=== PATIENT | female | born 1940 | race Caucasian/White ===

== ENCOUNTER 2017-11-19 19:39 | Inpatient (IN) | payer MEDICARE, BC ==
[2017-11-19] MEDS ORDERED: Ondansetron INJ* 2 MG/ML VIAL IV ONE (19:54)
[2017-11-19] MEDS ORDERED: fentaNYL* 50 MCG/ML 2 ML VIAL (100 MCG VIAL) IV SLOW PU ONE ×2 (19:54→22:05)
[2017-11-19 20:23] LABS: ABS Basophils 0.1 10^3/ul (0-0.2); ABS Eosinophils 0.2 10^3/ul (0-0.6); ABS Lymphocytes 1.3 10^3/ul (1.0-4.8); ABS Monocytes 0.4 10^3/ul (0-0.8); ABS Neutrophils 6.1 10^3/ul (1.5-7.7); ABS Nucleated RBC 0 10^3/ul; Eosinophil % 1.9 % (0-6); Hematocrit 36 % (35-47); Hemoglobin 12.7 g/dl (12.0-16.0); Lymphocyte % 16.1 % (25-47); Mean Corpuscular HGB Conc 36 g/dl (31-36); Mean Corpuscular Hemoglobin 31 pg (27-31); Mean Corpuscular Volume 88 fL (80-97); Mean Platelet Volume 8.1 um3 (7.4-10.4); Nucleated Red Blood Cells % 0; Platelet Count 201 10^3/ul (150-450); Red Blood Count 4.06 10^6/ul (4.00-5.40); Red Cell Distribution Width 13 % (10.5-15); White Blood Count 8.1 10^3/ul (3.5-10.8)
[2017-11-19 20:33] LABS: EGFR Non-African American 52.5 (>60)
[2017-11-19 20:34] LABS: INR 0.88 (0.77-1.02)
--- NOTE | 2017-11-19 21:01 | RAD ---
INDICATION: Left hip injury. COMPARISON: There are no prior studies available for comparison. TECHNIQUE: An AP view of the pelvis and frontal and lateral views of the left hip were obtained. FINDINGS: There is an intertrochanteric fracture of the left femur. The fracture fragments appear grossly nondisplaced. No other fractures are seen. There is mild to moderate bilateral osteoarthritic change in the hips. IMPRESSION: INTERTROCHANTERIC FRACTURE OF THE LEFT FEMUR.
--- NOTE | 2017-11-19 21:03 | RAD ---
INDICATION: Left hip fracture, preoperative study. COMPARISON: There are no prior studies available for comparison. TECHNIQUE: A portable view of the chest was obtained. FINDINGS: Cardiac and mediastinal contours appear to be within normal limits. The lungs are underinflated and clear. No pleural effusion is seen. IMPRESSION: NO EVIDENCE FOR ACUTE DISEASE.
--- NOTE | 2017-11-19 21:17 | ED ---
Josh Garnica Tariq, scribed for Joey Suazo MD on 11/19/17 at 2003 . Lower Extremity - HPI Summary HPI Summary: A 77 y/o female MATILDE presents to ED c/o left hip pain. According to the patient , she was at a gathering with she decided to head out to the parking lot. In the parking lot, she tripped on the black asphalt, falling on her left hip. She was not able to stand up because of the pain, 7/10 in severity. The patient noted that she cannot move it compared to before. As per triage, patient denies hitting head. - History of Current Complaint Chief Complaint: EDHipPelvisInjury Stated Complaint: FALL/HIP PAIN Time Seen by Provider: 11/19/17 19:47 Hx Obtained From: Patient Mechanism Of Injury: Fall From A Standing Position - Tripped in parking lot on black asphalt. Onset of Pain: Immediate Onset/Duration: Still Present Severity Initially: Severe Severity Currently: Severe Pain Intensity: 7 Pain Scale Used: 0-10 Numeric Timing: Constant Location: Is Discrete @ - Left hip. Aggravating Factor(s): Movement, Weight Bearing Alleviating Factor(s): Rest, Nothing - POSITION Able to Bear Weight: No - Allergies/Home Medications Allergies/Adverse Reactions: Allergies Allergy/AdvReac Type Severity Reaction Status Date / Time Unable to Assess Allergy Verified 11/19/17 20:20 PMH/Surg Hx/FS Hx/Imm Hx Endocrine/Hematology History: Denies: Hx Diabetes Cardiovascular History: Denies: Hx Hypertension - Cancer History Cancer Type, Location and Year: Breast cancer Infectious Disease History: No Infectious Disease History: Denies: Traveled Outside the [place] in Last 30 Days - Family History Known Family History: Positive: Diabetes, Other - Heart issues. - Social History Lives: With Family Alcohol Use: Daily - 4oz of wine with dinner, 5-6 times a week. Hx Tobacco Use: No Smoking Status (MU): Never Smoked Tobacco Review of Systems Negative: Fever Positive: Other - POSITIVE: left hip pain Neurological: Negative All Other Systems Reviewed And Are Negative: Yes Physical Exam - Summary Physical Exam Summary: VITAL SIGNS: Reviewed. GENERAL: Patient is a well-developed and nourished FEMALE who is in semi-flex position using pillow. Patient is not in any acute respiratory distress. HEAD AND FACE: No signs of trauma. No ecchymosis, hematomas or skull depressions. No sinus tenderness. EYES: PERRLA, EOMI x 2, No injected conjunctiva, no nystagmus. EARS: Hearing grossly intact. Ear canals and tympanic membranes are within normal limits. MOUTH: Oropharynx within normal limits. NECK: Supple, trachea is midline, no adenopathy, no JVD, no carotid bruit, no c- spine tenderness, neck with full ROM. CHEST: Symmetric, no tenderness at palpation LUNGS: Clear to auscultation bilaterally. No wheezing or crackles. CVS: Regular rate and rhythm, S1 and S2 present, no murmurs or gallops appreciated. ABDOMEN: Soft, non-tender. No signs of distention. No rebound no guarding, and no masses palpated. Bowel sounds are normal. EXTREMITIES: Left hip tenderness. Unable to move because of pain. No edema, no cyanosis or clubbing. NEURO: Alert and oriented x 3. No acute neurological deficits. Speech is normal and follows commands. Neuro exam is in tact. SKIN: Dry and warm Triage Information Reviewed: Yes Vital Signs On Initial Exam: Initial Vitals Temp Pulse Resp BP Pulse Ox 99.3 F 97 20 146/104 96 11/19/17 19:45 11/19/17 19:45 11/19/17 19:45 11/19/17 19:45 11/19/17 19:45 Vital Signs Reviewed: Yes Diagnostics - Vital Signs Vital Signs Temp Pulse Resp BP Pulse Ox 11/19/17 19:45 99.3 F 97 20 146/104 96 - Laboratory Result Diagrams: 11/19/17 20:09 11/19/17 20:09 Lab Statement: Any lab studies that have been ordered have been reviewed, and results considered in the medical decision making process. - Radiology HIP/PELVIS XR Radiology Interpretation Completed By: Radiologist - INTERTROCHANTERIC FRACTURE OF THE LEFT FEMUR. ED physician has reviewed this imaging report. CXR Xray Interpretation: No Acute Changes Radiology Interpretation Completed By: Radiologist - NO EVIDENCE FOR ACUTE DISEASE. ED physician has reviewed this imaging report. - EKG 2001 Cardiac Rate: NL - 86 BPM EKG Rhythm: Sinus Rhythm EKG Interpretation: Normal axis. Normal interval. No ischemic changes. Re-Evaluation - Re-Evaluation First Eval Re-Evaluation Time: 20:47 Comment: DISCUSSED RESULTS AND PLAN Lower Extremity Course/Dx - Course Course Of Treatment: A 77 y/o female MATILDE presents to ED c/o left hip pain. In the parking lot, she tripped on the black asphalt, falling on her left hip. She was not able to stand up because of the pain, 7/10 in severity. The patient noted that she cannot move it compared to before. Patient denies head injury. An EKG reveals normal rate at 86 BPM. Normal axis. Normal interval. No ischemic changes. A CXR reveal. A Hip/Pelvis XR revealed. In the ED course, pt was given Fentanyl and Ondansetron. We discussed patient care with Dr. Grijalva and Dr. Daley and they accept patient for admission. Patient will be admitted with a diagnosis of left hip fracture. Patient is agreeable with this plan. - Diagnoses Provider Diagnoses: Hip fracture, left - Physician Notifications Discussed Care Of Patient With: Brett Grijalva - ORTHOPEDICS Time Discussed With Above Provider: 20:50 Instructed by Provider To: Other - CONSULT WITH DR. DALEY AND DR. GRIJALVA. ACCEPTS PATIENT FOR ADMISSION. Discharge - Sign-Out/Discharge Documenting (check all that apply): Discharge/Admit/Transfer - ADMIT - Discharge Plan Condition: Stable Disposition: ADMITTED TO [facility] Patient Education Materials: Hip Fracture (ED) Referrals: [facility] [Outside] The documentation as recorded by the Josh maguire Tariq accurately reflects the service I personally performed and the decisions made by me, Joey Suazo MD.
[2017-11-19] MEDS ORDERED: Ondansetron INJ* 2 MG/ML VIAL IV PRN (22:32)
[2017-11-19] MEDS ORDERED: Metoclopramide IV* 5 MG/ML 2 ML VIAL IV ONE (22:40)
[2017-11-19] MEDS ORDERED: Baclofen TAB* 10 MG PO PRN (22:49)
[2017-11-19] MEDS ORDERED: Heparin VIAL(*) 5000 UNITS/ML VIAL (FIVE THOUSAND) SUBCUT SCH (23:00)
[2017-11-20] MEDS: NS 0.9% 1000 ML* 1,000 ML IV SCH ×2 (00:01→10:18)
[2017-11-20] MEDS: HYDROmorphone INJ* 0.5 MG/0.5 ML SYRINGE IV SLOW PU PRN ×8 (00:26→21:57)
--- NOTE | 2017-11-20 01:38 | HP ---
CC: Dr. Berg; Dr. Grace * HISTORY AND PHYSICAL: DATE OF ADMISSION: 11/19/17 PRIMARY CARE PROVIDER: Fauzia Jefferson. ATTENDING PHYSICIAN WHILE IN THE HOSPITAL: Dr. Chemo Daley * (dictated by Marizol Aguilar, AMBER) CHIEF COMPLAINT: Left hip pain. HISTORY OF PRESENT ILLNESS: Ms. Mills is a 77-year-old female who carries a past medical history significant for hypothyroidism, osteoporosis, history of breast cancer in 2007, has been cancer-free, and history of compression fracture of the lumbar spine in September 2016, who presented to the emergency room complaining of left hip pain after a trip and fall this evening. The patient reports that she was walking to her vehicle after a get together with her family and [place] her to land directly on her left hip. She denies any head injury or loss of consciousness. She denies any dizziness prior to the fall. She does report that she had immediate left hip pain after the fall and was unable to get up and unable to move her left leg. She denies any recent illnesses, denies any chest pain or shortness of breath, denies any nausea, vomiting or diarrhea. Denies any cough or congestion, denies any fever or chills, denies any urinary frequency or urgency. She denies any dizziness or loss of consciousness. She denies any neck pain. While in the emergency room, the patient had routine lab work drawn, which was within normal limits. She had x-ray of the left hip and pelvis, which showed left intertrochanteric fracture of the left hip. Given the fracture, we were asked by the emergency room to evaluate her for admission. PAST MEDICAL HISTORY: Significant for: 1. Hypothyroidism. 2. History of breast cancer in 2007, in remission. 3. Osteoporosis. 4. History of compression fracture to the L-spine in 2017. PAST SURGICAL HISTORY: Significant for: 1. Right lumpectomy. 2. Tonsillectomy. 3. Cholecystectomy. MEDICATIONS: Home medications include: 1. Multivitamin. 2. Vitamin D. 3. Calcium. 4. [place] 3 fatty acids 1 b.i.d. 5. Levothyroxine 100 mcg p.o. daily. ALLERGIES: No known allergies. FAMILY HISTORY: Father with a history of valve replacement, mother with a history of diabetes, brother with a history of lung cancer, sister with a history of diabetes. SOCIAL HISTORY: She denies any tobacco or illicit drug use. She does report 1 glass of wine daily. She is retired youth services librarian. She is . Surrogate decision maker, in the event she is unable to make her own decisions, is her Ibrahima, his phone #[phone]. REVIEW OF SYSTEMS: There was no documented fever, there has been significant weight change. There was no double vision. Denies any ear drainage. Denies any rhinorrhea. Denies any sore throat. Denies any chest pain. Denies any orthopnea or nocturnal dyspnea. There was no abdominal pain, nausea, vomiting or diarrhea. No dysuria or urinary frequency. There was no seizures. No loss of consciousness. She denies any neck pain. She denies any pruritus or skin ulcerations. A review of 14 systems was completed and all others were negative. PHYSICAL EXAMINATION GENERAL: At this time, Ms. Mills is a 77-year-old female. She appears uncomfortable, lying on the stretcher in the emergency room. She does not appear to be in any acute distress. VITAL SIGNS: Blood pressure 109/79, heart rate was 76, respirations 16, O2 saturation 98% on room air, temperature on admission was 99.3. HEENT: Head is atraumatic, normocephalic. Eyes: EOMs are intact. Pupils are equal and reactive to light. Sclerae anicteric and not pale. Oral mucosa appear to be moist. There is oropharyngeal erythema. NECK: Supple. No C-spine tenderness. LUNGS: Clear to auscultation bilaterally. No wheezes, rales or rhonchi. CARDIAC: S1, S2. Regular rate and rhythm. No murmurs, rubs or gallops. ABDOMEN: Flat, soft and nontender. Bowel sounds are present x4. EXTREMITIES: +2 pedal pulses bilaterally. She is able to move all four extremities. She does have significant tenderness to the left hip. There is no bruising or abrasion noted. There is an abrasion noted to the left lateral ankle. NEUROLOGIC: She is awake, alert and oriented x3. Tongue is midline. Speech is clear. There is no focal deficit. SKIN: There is a small abrasion noted to the left lateral ankle. DIAGNOSTIC STUDIES AND LABORATORY DATA: WBC were 8.1, RBC 4.06, hemoglobin is 12.7, hematocrit was 36, platelet count was 201, INR was 0.8, APTT was 23.7. Sodium 140, potassium 3.9, chloride 106, carbon dioxide was 24, anion gap was 10 , BUN was 22, creatinine 1.02, glucose was 108, calcium 9.8. Urine is pending at this time. EKG showed a sinus rhythm at a rate of 86. Chest x-ray, radiologist's impression: No active acute disease. Hip and pelvis x-ray: Intertrochanteric fracture of the left femur. ASSESSMENT AND PLAN: Ms. Mills is a 77-year-old female who presented to the emergency room with complaint of left hip pain after a fall. She was found to have a left intertrochanteric femur fracture. She will be admitted inpatient for: 1. Left hip fracture. Dr. Grace from orthopedics has been consulted. He has recommended Clemente's traction 5 pounds to the left leg, SCDs, type and cross for two units. I will repeat a CBC and BMP in the a.m. The patient is going to be n.p.o. after midnight for surgery tomorrow afternoon. I will give her one dose of heparin 5000 units this evening and hold further dosing until after surgery. She will have SCDs in place. I will give her Dilaudid as needed for pain, Zofran as needed for nausea, and baclofen as needed for muscle spasms to the left leg. The patient reports that she is able to carry out daily functions without any chest pain or shortness of breath. The patient reports that she walks approximately 2 miles a day 2 times a week doing an exercise video without development of chest pain or shortness of breath. She is able to climb stairs without developing chest pain. She does report that occasionally she does have some shortness of breath, but contributes that to her inactivity and deconditioning as she had a compression fracture in her back last year and was unable to exercise for a long period of time. She does report she just started resuming exercises a few months ago, but is able to carry out these activates without the development of chest pain. At this point, she is an acceptable candidate for surgery with no further cardiac workup needed. I will add normal saline 100 cc per hour. 2. Hypothyroidism, I will continue her levothyroxine 100 mcg p.o. daily. 3. Deep venous thrombosis prophylaxis. I will place her on SCDs. I will give her heparin subcu 5000 units x1 dose this evening and will hold until after surgery. 4. FEN. She will be n.p.o. after midnight. 5. Code status. She is a full code. TIME SPENT: Time spent on this admission was approximately 60 minutes, greater than half of that time was spent [id number] with the patient obtaining my history and physical, the other half of the time was spent going over my plan of care with the patient and implementing my plan of care. I have discussed this with my attending, Dr. Chemo Daley, and he is in agreement with my plan. MARIZOL AGUILAR, CHIPS SCREEN TENDER [id number]/[facility] #: [id number] FINA
[2017-11-20 06:47] LABS: ABS Basophils 0 10^3/ul (0-0.2); ABS Eosinophils 0 10^3/ul (0-0.6); ABS Monocytes 0.5 10^3/ul (0-0.8); ABS Neutrophils 8.7 10^3/ul (1.5-7.7); ABS Nucleated RBC 0 10^3/ul; Eosinophil % 0.1 % (0-6); Hematocrit 32 % (35-47); Hemoglobin 11.5 g/dl (12.0-16.0); Lymphocyte % 9.3 % (25-47); Mean Corpuscular HGB Conc 36 g/dl (31-36); Mean Corpuscular Hemoglobin 31 pg (27-31); Mean Corpuscular Volume 87 fL (80-97); Nucleated Red Blood Cells % 0.1; Platelet Count 168 10^3/ul (150-450); Red Cell Distribution Width 13 % (10.5-15); White Blood Count 10.2 10^3/ul (3.5-10.8)
[2017-11-20 07:19] LABS: EGFR Non-African American 72.7 (>60)
[2017-11-20] MEDS ORDERED: Famotidine IV* 10 MG/ML 2 ML (20 mg) IV ONE (09:09)
[2017-11-20 09:20] LABS: Urine Appearance Turbid; Urine Blood 2+ (Negative); Urine Color Yellow; Urine Ketones Negative (Negative); Urine Protein Negative (Negative); Urine Red Blood Cell 3+(>10/hpf) (Absent); Urine Specific Gravity 1.021 (1.010-1.030); Urine Urobilinogen Negative (Negative); Urine White Blood Cell Absent (Absent)
--- NOTE | 2017-11-20 12:18 | PN ---
Subjective Date of Service: 11/20/17 Interval History: Patient seen and examined. No acute overnight events. Remains in traction on affected side. Still having pain, pending OR this evening. Denies chest pain, no SOB, no fevers or chills. Objective Active Medications: Acetaminophen (Tylenol Tab*) 650 mg PO Q4H PRN PRN Reason: FEVER/PAIN Baclofen (Lioresal Tab*) 10 mg PO TID PRN PRN Reason: SPASMS - MUSCLE Cholecalciferol (Vitamin D Tab*) 500 units PO BID [place] Hydromorphone HCl (Dilaudid Inj*) 0.5 mg IV SLOW PU Q2H PRN PRN Reason: PAIN Last Admin: 11/20/17 12:02 Dose: 1 mg Sodium Chloride (Ns 0.9% 1000 Ml*) 1,000 mls @ 100 mls/hr IV PER RATE CHRITS[place]NA Last Admin: 11/20/17 10:18 Dose: 100 mls/hr Levothyroxine Sodium (Synthroid Tab*) 100 mcg PO 0600 [facility] Multivitamins (Theragran Tab*) 1 tab PO DAILY [facility] Ondansetron HCl (Zofran Inj*) 4 mg IV Q4H PRN PRN Reason: NAUSEA/VOMITING Last Admin: 11/20/17 08:36 Dose: 4 mg Vital Signs - 8 hr 11/20/17 11/20/17 11/20/17 04:53 06:10 06:54 Temperature Pulse Rate Respiratory 16 16 16 Rate Blood Pressure (mmHg) O2 Sat by Pulse Oximetry 11/20/17 11/20/17 11/20/17 07:20 08:30 08:51 Temperature 98.3 F Pulse Rate 73 Respiratory 16 18 18 Rate Blood Pressure 135/55 (mmHg) O2 Sat by Pulse 96 Oximetry 11/20/17 11/20/17 10:15 12:02 Temperature Pulse Rate Respiratory 16 16 Rate Blood Pressure (mmHg) O2 Sat by Pulse Oximetry Oxygen Devices in Use Now: None Appearance: Alert, well appearing, NAD Eyes: No Scleral Icterus, PERRLA Ears/Nose/Mouth/Throat: NL Teeth, Lips, Gums Neck: NL Appearance and Movements; NL JVP, Trachea Midline Respiratory: Symmetrical Chest Expansion and Respiratory Effort, Clear to Auscultation Cardiovascular: NL Sounds; No Murmurs; No JVD, RRR, No Edema Abdominal: NL Sounds; No Tenderness; No Distention Extremities: No Edema, No Clubbing, Cyanosis Skin: No Rash or Ulcers Neurological: Alert and Oriented x 3, NL Sensation, NL Muscle Strength and Tone Nutrition: - - NPO for procedure Result Diagrams: 11/20/17 06:29 07 06:29 Assess/Plan/Problems-Billing Assessment: This is a 77 year old female with hx of osteoarthritis and osteoporosis that sustained a machanical fall and left hip fracture. - Patient Problems (1) Intertrochanteric fracture of left femur Code(s): S72.142A - DISPLACED INTERTROCHANTERIC FRACTURE OF LEFT FEMUR, INIT SNOMED Code(s): 477097195 Comment: - Continue Clemente's traction on LLE as per ortho recs - Increase pain control until surgery later tonight - Continue IVF - Contiue NPO - Plan for OR this evening with Dr. Grace - PUD prophy with pepcid (2) Hypothyroid Code(s): E03.9 - HYPOTHYROIDISM, UNSPECIFIED SNOMED Code(s): 17849624 Comment: - Continue synthroid (3) Osteoporosis Code(s): M81.0 - AGE-RELATED OSTEOPOROSIS W/O CURRENT PATHOLOGICAL FRACTURE SNOMED Code(s): 33334037 Comment: - Report of L2 compression fracture last year - May want to consider a bisphosphosphonate or biologic in the future and increase in D3 given recent fractures (4) Osteoarthritis Code(s): M19.90 - UNSPECIFIED OSTEOARTHRITIS, UNSPECIFIED SITE SNOMED Code(s) : 693656828 Comment: - Supportive care (5) DVT prophylaxis Code(s): LPU1440 - SNOMED Code(s): 883966977 Comment: - Hold today - Post-op DVT prophy per ortho recs (6) Full code status Code(s): Z78.9 - OTHER SPECIFIED HEALTH STATUS SNOMED Code(s): 136723764 Status and Disposition: Remains medically optimized for surgery today. Remain inpatient.
[2017-11-20] MEDS ORDERED: KETAMINE HCL* 50 MG/ML 10 ML VIAL ONE (15:07)
[2017-11-20] MEDS ORDERED: fentaNYL* 50 MCG/ML 2 ML VIAL (100 MCG VIAL) ONE ×2 (15:07→19:04)
[2017-11-20] MEDS ORDERED: Midazolam* 1 MG/ML 5 ML VIAL (5 MG) ONE (15:07)
[2017-11-20] MEDS ORDERED: HYDROmorphone INJ* 0.5 MG/0.5 ML SYRINGE ONE ×2 (15:12→15:15)
[2017-11-20] MEDS ORDERED: Bupivacaine 0.5% PF 10 ML VIAL INJ ONE (15:37)
[2017-11-20] MEDS ORDERED: Clindamycin 900 MG IVPREMIX(* 900 MG/50 ML SDV IV ONE (16:28)
[2017-11-20] MEDS ORDERED: Bupivacaine 0.5% W/EPI SDV* 10 ML VIAL INJ ONE (16:32)
[2017-11-20] MEDS ORDERED: Ondansetron INJ* 2 MG/ML VIAL ONE (18:38)
[2017-11-20] MEDS ORDERED: EPHEDrine (Pressors)* 50 MG/ML VIAL ONE (18:38)
[2017-11-20] MEDS ORDERED: Propofol* 10 MG/ML 20 ML BTL IV PUSH ONE (18:38)
[2017-11-20] MEDS ORDERED: Dexamethasone IV* 4 MG/ML 1 ML (4 MG) ONE (18:38)
[2017-11-20] MEDS ORDERED: Phenylephrine INJ* 10 MG/ML 1 ML VIAL (10 MG) ONE (18:38)
[2017-11-20] MEDS ORDERED: Morphine VIAL* 10 MG/ML 1 ML VIAL ONE (19:04)
[2017-11-20] MEDS ORDERED: DiMENhydriNATE IV* 50 MG/ML VIAL IV PUSH PRN (19:05)
[2017-11-20] MEDS ORDERED: oxyCODONE/Acetamin 5/325 MG* TAB PO PRN (19:05)
[2017-11-20] MEDS ORDERED: PROCHLORPERAZINE INJ 5 MG/ML 2 ML VIAL IV PRN (19:05)
[2017-11-20] MEDS ORDERED: Naloxone* 0.4 MG/ML 1 ML VIAL IV PRN (19:05)
[2017-11-20] MEDS: fentaNYL* 50 MCG/ML 2 ML VIAL (100 MCG VIAL) IV PRN ×2 (19:07→19:12)
[2017-11-20] MEDS: Morphine INJ* 2 MG/ML 1 ML CARPUJECT IV PRN ×2 (19:07→19:13)
--- NOTE | 2017-11-20 19:16 | RAD ---
INDICATION: ORIF left hip COMPARISON: Left hip 72,018 FINDINGS: 47.3 seconds of fluoroscopy were provided for the orthopedics department. Fluoroscopic spot imaging of the right hip were obtained for operative control and show Matt screw placement . CPT II Codes: G9500 (fluoro time doc)
--- NOTE | 2017-11-20 19:17 | RAD ---
INDICATION: Postoperative COMPARISON: Left hip November 29, 2017 TECHNIQUE: AP and frog-leg views left hip were obtained FINDINGS: There is placement of Matt screw in expected position. The anatomic relationships have been restored. IMPRESSION: POSTOPERATIVE MATT SCREW PLACEMENT LEFT HIP.
[2017-11-20] MEDS: Cholecalciferol TAB* 1000 UNITS PO SCH (21:06)
[2017-11-20] MEDS: Clindamycin 900 MG IVPREMIX(* 900 MG/50 ML SDV IV SCH (22:28)
[2017-11-21] MEDS: oxyCODONE/Acetamin 5/325 MG* TAB PO PRN ×3 (02:13→11:37)
[2017-11-21] MEDS: NS 0.9% 1000 ML* 1,000 ML IV SCH (03:23)
[2017-11-21] MEDS: Clindamycin 900 MG IVPREMIX(* 900 MG/50 ML SDV IV SCH ×2 (04:26→11:38)
[2017-11-21] MEDS: Levothyroxine TAB* 100 MCG TAB PO SCH (06:20)
[2017-11-21 06:29] LABS: Hematocrit 28 % (35-47); Hemoglobin 9.9 g/dl (12.0-16.0)
[2017-11-21] MEDS: Rivaroxaban TAB(*) 10 MG PO SCH (08:57)
[2017-11-21] MEDS: Vitamin THERAPEUTIC TAB PO SCH (08:57)
[2017-11-21] MEDS: Cholecalciferol TAB* 1000 UNITS PO SCH ×2 (08:58→21:06)
--- NOTE | 2017-11-21 10:52 | OP ---
DATE OF OPERATION: 11/20/17 - ROOM #[id number] DATE OF : 40 SURGEON: Brett Grace MD [employer] FABRICATOR: BASHIR Williamson ANESTHESIOLOGIST: Dr. Honorio Toro. ANESTHESIA: General. PRE-OP DIAGNOSIS: Intertrochanteric left hip fracture. POST-OP DIAGNOSIS: Intertrochanteric left hip fracture. OPERATIVE PROCEDURE: Open reduction and internal fixation of left intertrochanteric hip fracture with a 135-degree Synthes ankle plate 4-hole and 100 mm lag screw, and 4.5 cortical screws to hold the plate to the femur. ESTIMATED BLOOD LOSS: 400 mL. SPECIMEN: None. FLUIDS: Routine. DRAINS: None. INDICATIONS: Brief Clinical Note: Ms. Toña Mills is a 77-year-old female who sustained a fracture of her left hip when she slipped and fell. The patient was appropriately transported to the [facility] Emergency Room where appropriate films verified that she indeed had a left minimally displaced intertrochanteric fracture of the left hip. The risks and benefits of operative versus nonoperative intervention were thoroughly discussed with the patient and she was scheduled for surgical intervention in the form of an ORIF of the left hip. FINDINGS: The patient tolerated the procedure well. DESCRIPTION OF PROCEDURE: The patient was taken to the operating room therefore on 11/20/17, and after being prepped and draped in the usual sterile fashion, a C-arm was brought in verifying that we had an acceptable reduction on both AP and lateral planes, and then we proceeded to make an incision. After the time-out was called, we again verified that the left hip was the correct hip and all necessary equipment for the procedure was available. I then made a lateral incision on the left hip beginning approximately 2 fingerbreadths distal to the greater trochanter. The size of the incision was approximately 5 cm. Skin was incised with a #10 blade. I identified the tensor fascia víctor, which was split longitudinally and then the vastus lateralis , which was split longitudinally. I then gained access to the lateral cortex of the femur and then with the aid of a blunt guidewire, I placed a guidewire in the approximate trajectory of my proposed screw, and then with the aid of 135 -degree angle guide, I placed the guidewire into the center of the neck and the slight posterior third of the femoral head. This was verified on both AP and lateral projections, after which we then measured and this was verified and we needed a size 100-mm lag screw. I then drilled with the 2-step reamer and tapped and then placed appropriate length 100-mm lag screw in place, after which we were then able to fix the size 135-degree angled plate over the screw impacting it to bone, then used a turkey foot clamp to fix it to bone, then was sequentially drilled and measured, and then placed appropriate length 4.5 fully threaded cortical screws, after which we had verified on both AP and lateral planes that we had an acceptable reduction reduction in both AP and lateral, and then verified that our fracture was well reduced, then the wound was irrigated copiously, and then the wound was closed with 0 Vicryl for tensor fascia víctor and then 2-0 for superficial and deep subcu followed by skin rubens for skin. Standard dressings were applied and the patient was then transported off of the operating table to the stretcher and to the recovery room having tolerated the procedure very well. [id number]/[facility] #: [id number] FINA
[2017-11-21] MEDS ORDERED: Docusate CAP* 100 MG PO PRN (11:43)
[2017-11-21] MEDS ORDERED: Polyethylene Glycol 3350* 17 GM PACKET PO PRN (11:43)
[2017-11-21] MEDS: traMADol TAB* 50 MG PO PRN ×2 (16:17→22:20)
--- NOTE | 2017-11-21 18:12 | PN ---
Subjective Date of Service: 11/21/17 Interval History: Patient seen and examined. C/O edema to left thigh and knee and some difficulty ambulating with PT. Denies SOB, no chest pain, passing flatus, no fever or chills. Objective Active Medications: Acetaminophen (Tylenol Tab*) 650 mg PO Q4H PRN PRN Reason: FEVER/PAIN Baclofen (Lioresal Tab*) 10 mg PO TID PRN PRN Reason: SPASMS - MUSCLE Cholecalciferol (Vitamin D Tab*) 500 units PO BID [facility] Last Admin: 11/21/17 08:58 Dose: 500 units Docusate Sodium (Colace Cap*) 100 mg PO BID PRN PRN Reason: CONSTIPATION Hydromorphone HCl (Dilaudid Inj*) 1 mg IV SLOW PU Q2H PRN PRN Reason: PAIN Last Admin: 11/20/17 21:57 Dose: 1 mg Levothyroxine Sodium (Synthroid Tab*) 100 mcg PO 0600 [facility] Last Admin: 11/21/17 06:20 Dose: 100 mcg Multivitamins (Theragran Tab*) 1 tab PO DAILY [facility] Last Admin: 11/21/17 08:57 Dose: 1 tab Ondansetron HCl (Zofran Inj*) 4 mg IV Q4H PRN PRN Reason: NAUSEA/VOMITING Last Admin: 11/20/17 08:36 Dose: 4 mg Oxycodone/Acetaminophen (Percocet 5/325 Tab*) 1 tab PO Q4H PRN PRN Reason: PAIN Last Admin: 11/21/17 11:37 Dose: 1 tab Polyethylene Glycol/Electrolytes (Miralax*) 17 gm PO DAILY PRN PRN Reason: CONSTIPATION Rivaroxaban (Xarelto(*)) 10 mg PO DAILY [facility] Stop: 12/25/17 09:01 Last Admin: 11/21/17 08:57 Dose: 10 mg Tramadol HCl (Ultram*) 50 mg PO Q6H PRN PRN Reason: PAIN Last Admin: 11/21/17 16:17 Dose: 50 mg Vital Signs - 8 hr 11/21/17 11/21/17 11/21/17 11:37 11:47 14:48 Temperature 98.9 F Pulse Rate 83 Respiratory 16 16 16 Rate Blood Pressure 112/53 (mmHg) O2 Sat by Pulse 97 Oximetry 11/21/17 11/21/17 11/21/17 15:18 16:00 16:17 Temperature 98.9 F Pulse Rate 92 Respiratory 16 16 Rate Blood Pressure 119/46 (mmHg) O2 Sat by Pulse 98 98 Oximetry Oxygen Devices in Use Now: None Appearance: Alert, NAD Eyes: No Scleral Icterus, PERRLA Ears/Nose/Mouth/Throat: NL Teeth, Lips, Gums, Mucous Membranes Moist Neck: NL Appearance and Movements; NL JVP, Trachea Midline Respiratory: Symmetrical Chest Expansion and Respiratory Effort, Clear to Auscultation Cardiovascular: NL Sounds; No Murmurs; No JVD, RRR, No Edema Abdominal: NL Sounds; No Tenderness; No Distention Skin: - - ecchymosis and edema to left thigh and knee with sig amount of serous drainage on dressing Neurological: Alert and Oriented x 3 Nutrition: Taking PO's Result Diagrams: 11/21/17 05:42 11/20/17 06:29 Assess/Plan/Problems-Billing Assessment: This is a 77 year old female with hx of osteoarthritis and osteoporosis that sustained a machanical fall and left hip fracture, POD1 ORIF - Patient Problems (1) Intertrochanteric fracture of left femur Code(s): S72.142A - DISPLACED INTERTROCHANTERIC FRACTURE OF LEFT FEMUR, INIT SNOMED Code(s): 099996751 Comment: - POC as per ortho - Suggest dressing change and evaluation of potential hematoma to surgical site , reached out to ortho for recs - Pain control - PT/OT - PUD prophy with pepcid (2) Hypothyroid Code(s): E03.9 - HYPOTHYROIDISM, UNSPECIFIED SNOMED Code(s): 63797211 Comment: - Continue synthroid (3) Osteoporosis Code(s): M81.0 - AGE-RELATED OSTEOPOROSIS W/O CURRENT PATHOLOGICAL FRACTURE SNOMED Code(s): 42197765 Comment: - Report of L2 compression fracture last year - May want to consider a bisphosphosphonate or biologic in the future and increase in D3 given recent fractures - Stable (4) Osteoarthritis Code(s): M19.90 - UNSPECIFIED OSTEOARTHRITIS, UNSPECIFIED SITE SNOMED Code(s) : 957134810 Comment: - Supportive care (5) DVT prophylaxis Code(s): JBA3109 - SNOMED Code(s): 366051230 Comment: - Hold today - Post-op DVT prophy per ortho recs (6) Full code status Code(s): Z78.9 - OTHER SPECIFIED HEALTH STATUS SNOMED Code(s): 680161207 Status and Disposition: Remain inpatient. dispo per ortho
[2017-11-22] MEDS: Acetaminophen TAB* 325 MG PO PRN ×3 (03:49→23:06)
[2017-11-22 05:51] LABS: Hematocrit 26 % (35-47); Hemoglobin 9.3 g/dl (12.0-16.0)
[2017-11-22] MEDS: traMADol TAB* 50 MG PO PRN ×3 (05:59→18:36)
[2017-11-22] MEDS: Levothyroxine TAB* 100 MCG TAB PO SCH (06:00)
[2017-11-22] MEDS: Cholecalciferol TAB* 1000 UNITS PO SCH ×2 (09:47→23:07)
[2017-11-22] MEDS: Rivaroxaban TAB(*) 10 MG PO SCH (09:47)
[2017-11-22] MEDS: Vitamin THERAPEUTIC TAB PO SCH (09:48)
--- NOTE | 2017-11-22 17:57 | PN ---
Subjective Date of Service: 11/22/17 Interval History: Patient seen and examined OOB to chair, at bedside. States she is able to ambulate a little better today. Still complaining of pain and swelling at the surgical site and left knee with modest improvement from yesterday. Ice packs helping. Denies chest pain, no cough, no fever or chills. Passing flatus. No further complaints. Objective Active Medications: Acetaminophen (Tylenol Tab*) 650 mg PO Q4H PRN PRN Reason: FEVER/PAIN Last Admin: 11/22/17 16:50 Dose: 650 mg Baclofen (Lioresal Tab*) 10 mg PO TID PRN PRN Reason: SPASMS - MUSCLE Cholecalciferol (Vitamin D Tab*) 500 units PO BID [facility] Last Admin: 11/22/17 09:47 Dose: 500 units Docusate Sodium (Colace Cap*) 100 mg PO BID PRN PRN Reason: CONSTIPATION Hydromorphone HCl (Dilaudid Inj*) 1 mg IV SLOW PU Q2H PRN PRN Reason: PAIN Last Admin: 11/20/17 21:57 Dose: 1 mg Levothyroxine Sodium (Synthroid Tab*) 100 mcg PO 0600 [facility] Last Admin: 11/22/17 06:00 Dose: 100 mcg Multivitamins (Theragran Tab*) 1 tab PO DAILY [facility] Last Admin: 11/22/17 09:48 Dose: 1 tab Ondansetron HCl (Zofran Inj*) 4 mg IV Q4H PRN PRN Reason: NAUSEA/VOMITING Last Admin: 11/20/17 08:36 Dose: 4 mg Oxycodone/Acetaminophen (Percocet 5/325 Tab*) 1 tab PO Q4H PRN PRN Reason: PAIN Last Admin: 11/21/17 11:37 Dose: 1 tab Polyethylene Glycol/Electrolytes (Miralax*) 17 gm PO DAILY PRN PRN Reason: CONSTIPATION Rivaroxaban (Xarelto(*)) 10 mg PO DAILY [facility] Stop: 12/25/17 09:01 Last Admin: 11/22/17 09:47 Dose: 10 mg Tramadol HCl (Ultram*) 50 mg PO Q6H PRN PRN Reason: PAIN Last Admin: 11/22/17 12:26 Dose: 50 mg Vital Signs - 8 hr 11/22/17 11/22/1711/22/18 11:25 12:26 15:31 Temperature 98.9 F Pulse Rate 86 Respiratory 17 18 16 Rate Blood Pressure 121/44 (mmHg) O2 Sat by Pulse 97 Oximetry 11/22/17 15:38 Temperature 98.4 F Pulse Rate 91 Respiratory 20 Rate Blood Pressure 125/45 (mmHg) O2 Sat by Pulse 99 Oximetry Oxygen Devices in Use Now: None Appearance: Alert, NAD Eyes: No Scleral Icterus, PERRLA Ears/Nose/Mouth/Throat: NL Teeth, Lips, Gums, Mucous Membranes Moist Neck: NL Appearance and Movements; NL JVP, Trachea Midline Respiratory: Symmetrical Chest Expansion and Respiratory Effort, Clear to Auscultation Cardiovascular: NL Sounds; No Murmurs; No JVD, RRR Abdominal: NL Sounds; No Tenderness; No Distention Extremities: No Clubbing, Cyanosis, - - left thigh tight, non-pitting edema to the knee, dressing CDI Skin: No Rash or Ulcers Neurological: Alert and Oriented x 3, NL Sensation Nutrition: Taking PO's Result Diagrams: 11/22/17 05:35 11/20/17 06:29 Assess/Plan/Problems-Billing Assessment: This is a 77 year old female with hx of osteoarthritis and osteoporosis that sustained a machanical fall and left hip fracture, POD2 ORIF - Patient Problems (1) Intertrochanteric fracture of left femur Code(s): S72.142A - DISPLACED INTERTROCHANTERIC FRACTURE OF LEFT FEMUR, INIT SNOMED Code(s): 127015996 Comment: - POC as per ortho - DVT prophy - Pain control - PT/OT - PUD prophy with pepcid (2) Hypothyroid Code(s): E03.9 - HYPOTHYROIDISM, UNSPECIFIED SNOMED Code(s): 13774500 Comment: - Continue synthroid (3) Osteoporosis Code(s): M81.0 - AGE-RELATED OSTEOPOROSIS W/O CURRENT PATHOLOGICAL FRACTURE SNOMED Code(s): 98784506 Comment: - Report of L2 compression fracture last year - May want to consider a bisphosphosphonate or biologic in the future and increase in D3 given recent fractures - Stable (4) Osteoarthritis Code(s): M19.90 - UNSPECIFIED OSTEOARTHRITIS, UNSPECIFIED SITE SNOMED Code(s) : 737886501 Comment: - Supportive care (5) DVT prophylaxis Code(s): [id number] - SNOMED Code(s): 769166198 Comment: - xarelto as per ortho (6) Full code status Code(s): Z78.9 - OTHER SPECIFIED HEALTH STATUS SNOMED Code(s): 897048340 Status and Disposition: Remain inpatient. dispo per ortho
[2017-11-23] MEDS: traMADol TAB* 50 MG PO PRN ×3 (03:49→18:30)
[2017-11-23 05:27] LABS: Hematocrit 26 % (35-47)
[2017-11-23] MEDS: Acetaminophen TAB* 325 MG PO PRN ×3 (05:55→20:08)
[2017-11-23] MEDS: Levothyroxine TAB* 100 MCG TAB PO SCH (05:55)
[2017-11-23] MEDS: Vitamin THERAPEUTIC TAB PO SCH (09:39)
[2017-11-23] MEDS: Cholecalciferol TAB* 1000 UNITS PO SCH ×2 (09:39→20:09)
[2017-11-23] MEDS: Rivaroxaban TAB(*) 10 MG PO SCH (09:39)
--- NOTE | 2017-11-23 15:30 | PN ---
Subjective Date of Service: 11/23/17 Interval History: No acute overnight events. Patient improving with ambulation however, still feeling a lot of pain on the operative side. Denies any fever, fatigue or chills , no SOB, no chest pain. Objective Active Medications: Acetaminophen (Tylenol Tab*) 650 mg PO Q4H PRN PRN Reason: FEVER/PAIN Last Admin: 11/23/17 05:55 Dose: 650 mg Baclofen (Lioresal Tab*) 10 mg PO TID PRN PRN Reason: SPASMS - MUSCLE Cholecalciferol (Vitamin D Tab*) 500 units PO BID [facility] Last Admin: 11/23/17 09:39 Dose: 500 units Docusate Sodium (Colace Cap*) 100 mg PO BID PRN PRN Reason: CONSTIPATION Hydromorphone HCl (Dilaudid Inj*) 1 mg IV SLOW PU Q2H PRN PRN Reason: PAIN Last Admin: 11/20/17 21:57 Dose: 1 mg Levothyroxine Sodium (Synthroid Tab*) 100 mcg PO 0600 [facility] Last Admin: 11/23/17 05:55 Dose: 100 mcg Multivitamins (Theragran Tab*) 1 tab PO DAILY [facility] Last Admin: 11/23/17 09:39 Dose: 1 tab Ondansetron HCl (Zofran Inj*) 4 mg IV Q4H PRN PRN Reason: NAUSEA/VOMITING Last Admin: 11/20/17 08:36 Dose: 4 mg Oxycodone/Acetaminophen (Percocet 5/325 Tab*) 1 tab PO Q4H PRN PRN Reason: PAIN Last Admin: 11/21/17 11:37 Dose: 1 tab Polyethylene Glycol/Electrolytes (Miralax*) 17 gm PO DAILY PRN PRN Reason: CONSTIPATION Rivaroxaban (Xarelto(*)) 10 mg PO DAILY [facility] Stop: 12/25/17 09:01 Last Admin: 11/23/17 09:39 Dose: 10 mg Tramadol HCl (Ultram*) 50 mg PO Q6H PRN PRN Reason: PAIN Last Admin: 11/23/17 12:04 Dose: 50 mg Vital Signs - 8 hr 11/23/17 11/23/17 11/23/17 08:00 11:22 12:04 Temperature 98.5 F Pulse Rate 96 Respiratory 16 17 18 Rate Blood Pressure 130/53 (mmHg) O2 Sat by Pulse 95 99 Oximetry Oxygen Devices in Use Now: None Appearance: Alert, NAD Eyes: No Scleral Icterus, PERRLA Ears/Nose/Mouth/Throat: NL Teeth, Lips, Gums, Clear Oropharnyx Neck: Trachea Midline Respiratory: Symmetrical Chest Expansion and Respiratory Effort, Clear to Auscultation Cardiovascular: NL Sounds; No Murmurs; No JVD, RRR Abdominal: NL Sounds; No Tenderness; No Distention Extremities: - - edema left thigh, dressing CDI Neurological: Alert and Oriented x 3 Nutrition: Taking PO's Result Diagrams: 11/23/17 05:02 11/20/17 06:29 Assess/Plan/Problems-Billing Assessment: This is a 77 year old female with hx of osteoarthritis and osteoporosis that sustained a machanical fall and left hip fracture, POD3 ORIF - Patient Problems (1) Intertrochanteric fracture of left femur Code(s): S72.142A - DISPLACED INTERTROCHANTERIC FRACTURE OF LEFT FEMUR, INIT SNOMED Code(s): 242596727 Comment: - POC as per ortho - DVT prophy - Pain control - PT/OT - PUD prophy with pepcid (2) Hypothyroid Code(s): E03.9 - HYPOTHYROIDISM, UNSPECIFIED SNOMED Code(s): 66434466 Comment: - Continue synthroid (3) Osteoporosis Code(s): M81.0 - AGE-RELATED OSTEOPOROSIS W/O CURRENT PATHOLOGICAL FRACTURE SNOMED Code(s): 52943749 Comment: - Report of L2 compression fracture last year - May want to consider a bisphosphosphonate or biologic in the future and increase in D3 given recent fractures - Stable (4) Osteoarthritis Code(s): M19.90 - UNSPECIFIED OSTEOARTHRITIS, UNSPECIFIED SITE SNOMED Code(s) : 053600127 Comment: - Supportive care (5) DVT prophylaxis Code(s): USE0495 - SNOMED Code(s): 160440350 Comment: - xarelto as per ortho (6) Full code status Code(s): Z78.9 - OTHER SPECIFIED HEALTH STATUS SNOMED Code(s): 644496041 Status and Disposition: PT recommending JACOB, medically stable for transfer to rehab when clear by orthopedics.
[2017-11-24] MEDS: traMADol TAB* 50 MG PO PRN ×3 (00:36→12:48)
[2017-11-24] MEDS: Levothyroxine TAB* 100 MCG TAB PO SCH (06:46)
[2017-11-24] MEDS: Rivaroxaban TAB(*) 10 MG PO SCH (08:55)
[2017-11-24] MEDS: Vitamin THERAPEUTIC TAB PO SCH (08:56)
[2017-11-24] MEDS: Cholecalciferol TAB* 1000 UNITS PO SCH (08:56)
[2017-11-24] MEDS: Acetaminophen TAB* 325 MG PO PRN ×2 (09:12→16:18)
[2017-11-24 12:48] VITALS: BP 121/50
--- NOTE | 2017-11-25 17:50 | DS ---
CC: Dr. Berg * DISCHARGE SUMMARY: DATE OF ADMISSION: 11/19/17 DATE OF DISCHARGE: 11/24/17 PRIMARY CARE PROVIDER: Dr. Berg. MY ATTENDING WHILE IN THE HOSPITAL: Dr. Marlon Goyal.* (DICTATED BY HARMONY TOLBERT) PRIMARY DISCHARGE DIAGNOSES: 1. Mechanical fall. 2. Osteoporosis. 3. Intertrochanteric fracture of the left femur. SECONDARY DISCHARGE DIAGNOSES: 1. Compression fracture of the lumbar spine. 2. Hypothyroidism. 3. History of breast cancer in remission. STUDIES DONE WHILE IN THE HOSPITAL: Chest x-ray from 11/19/17, read as no evidence for acute disease. A pelvic x-ray from 11/19/17, read as intertrochanteric fracture of the left femur. Electrocardiogram from 11/19/17, shows normal sinus rhythm. Repolarization in V3. No other ST segment abnormalities. Left axis deviation. No signs of hypertrophy or enlargement. No blocks. Rate of 86, QTc of 419. Hip x-ray from 11/20/17, read as fluoroscopy. Repeat hip x-ray from 11/20/17, read as postoperative RetroScrew placement left hip. MEDICATIONS AT DISCHARGE: 1. [place] 3 fatty acids 1 tab p.o. b.i.d. 2. Levothyroxine 100 mcg p.o. daily. 3. Vitamin D 500 units p.o. b.i.d. 4. Multivitamin 1 cap p.o. daily. 5. Tylenol 650 mg p.o. q.4 hours as needed. 6. Baclofen 10 mg p.o. t.i.d. as needed. 7. Docusate 100 mg p.o. b.i.d. 8. Percocet 5/325 one tab p.o. q.6 hours as needed. 9. Polyethylene glycol 17 g p.o. daily as needed. 10. Xarelto 10 mg p.o. daily. 11. Tramadol 50 mg p.o. q.6 hours as needed. HOSPITAL COURSE: This is a brief summary of the patient's presentation. For more details, please see the history and physical from Marizol Aguilar NP, on 11/19/17. In brief, the patient is a 77-year-old female with past medical history significant for the above, who was in her normal state of health who tripped on the evening of her presentation outside and she fell directly on her left hip, had immediate pain. Denied any dizziness, syncope, chest pain, shortness of breath, nausea, vomiting, diarrhea, changes in her vision, loss of consciousness. The patient came to the emergency room and had imaging as above. The patient was seen in consultation by Dr. Brett Grace of Orthopedics , who planned for an open reduction and internal fixation of her left hip, which was performed on 11/20/17. The patient had continued pain, but no other vital signs or laboratory abnormalities. The patient had an uneventful operative course. The patient was started on Xarelto for DVT prophylaxis postoperatively, which she tolerated well. The patient had significant edema to her left leg without calf tenderness or other signs of DVT. The patient was seen in consultation by Physical Therapy and Occupational Therapy and progressed slowly over the course of her hospitalization. The patient's pain was . The patient had no postoperative complications. The patient progressed slowly until the day of discharge when she was able to walk over 20 feet with a standby assist. It was recommended the patient go to subacute rehab ; however, the patient insisted on going home and her family made adequate preparation including a hospital bed as well as other assistive devices to aid in her independent living at home. The patient was stable now for discharge on 11/24/17. PHYSICAL EXAMINATION ON DAY OF DISCHARGE: General: The patient is a 77-year- old female, who appears younger than her stated age and sitting comfortably in bed, in no acute distress. Vital Signs: At the time of discharge, temperature 98.3, pulse rate 87, respiratory rate 16, oxygen saturation 98% on room air, blood pressure 151/50. HEENT: Head: Normocephalic, atraumatic. Sclerae are anicteric. No conjunctival injection. Nasal mucosa moist. Oral mucosa moist. No pharyngeal erythema, discharge, or exudate. Neck: Supple, nontender. No lymphadenopathy. No carotid bruit auscultated. No JVD. Cardiac: Regular rate and rhythm. No clicks, murmurs, gallops, or rubs. Pulses are 2+ bilaterally in dorsalis pedis, posterior tibialis, and radial areas. 2+ pitting edema in the left lower extremity. No calf tenderness. Respiratory: Clear to auscultation bilaterally. No wheezes, rales, or rhonchi. Good air exchange bilaterally. Abdomen: Soft, nontender, nondistended. Bowel sounds present, normoactive in all 4 quadrants. No hepatosplenomegaly. No abdominal bruits auscultated. No hepatojugular reflux. Genitourinary: No suprapubic or CVA tenderness. Skin: Left hip incision covered, visualized without signs of infection, slight amount of bloody drainage. [place] in place. No other rashes. Neurologic: Cranial nerves II through XII intact. No focal deficits. Alert and oriented x3. Psychiatric: Pleasant and cooperative. LABORATORY DATA: On day of discharge, hemoglobin 9.0. Other laboratory data of note from hospitalization, initial hemoglobin 12.7, creatinine 1.02, glucose 108, TSH 2.54. DISCHARGE PLAN: The patient will be discharged to home. The patient will have followup with her primary care provider within 1 week for general medical management including discussing treatment of her osteoporosis and routine monitoring for bone density of the patient. This is likely contributed to the patient's propensity for bone breakage, which is evidenced by her intertrochanteric fracture as well as her compression fracture within the past 2 years. The patient should have a repeat CBC drawn. The patient was asymptomatic for her anemia upon discharge. The patient should follow up with Dr. Grace within 10 days for removal of her rubens as well as monitoring of her surgical site and progress. The patient has visiting nurse services set up. The patient should return to the hospital for new falls, severely increased pain in her surgical site, high fevers, chest pain, shortness of breath, or syncope. The patient should have a regular unrestricted diet and engage activity as tolerated. The patient had elevated fasting glucoses while in the hospital, routine monitoring for diabetes should be performed outpatient. TIME SPENT: Approximately 75 minutes were spent on this discharge, 30 minutes of which was spent [id number] with the patient, obtaining history and physical and discussing treatment plan. HARMONY TOLBERT [id number]/CPS #: [id number] MTDD
== END 2017-11-24 16:30 | disposition home health service (06) | DRG 482 ==
LOC: ED 19:39 → SSU 22:32 → UNDODISIN 11-24 16:27
PROVIDERS: ADMIT Hospitalist; ATTEND Internal Medicine
PROC: 0QS704Z Reposition Left Upper Femur with Internal Fixation Device, Open Approach (ICD-10-PCS; principal; 2017-11-20 16:00)
DX: S72.142A Displaced intertrochanteric fracture of left femur, initial encounter for closed fracture (principal); M81.0 Age-related osteoporosis without current pathological fracture; E03.9 Hypothyroidism, unspecified; Z85.3 Personal history of malignant neoplasm of breast; Z79.01 Long term (current) use of anticoagulants; W01.0XXA Fall on same level from slipping, tripping and stumbling without subsequent striking against object, initial encounter; Z90.49 Acquired absence of other specified parts of digestive tract; Z82.49 Family history of ischemic heart disease and other diseases of the circulatory system; Z83.3 Family history of diabetes mellitus; Z80.1 Family history of malignant neoplasm of trachea, bronchus and lung; Y92.481 Parking lot as the place of occurrence of the external cause; M19.90 Unspecified osteoarthritis, unspecified site; R60.0 Localized edema
CPT/HCPCS: 36415; 71045; 76000; 80048; 80053; 81003; 81015; 84443; 85014; 85018; 85025; 85610; 85730; 86850; 86900; 86901; 93005; 99284; A9270-GY; C1713; C1776; G8978-GP-CJ; G8979-GP-CI; G8987-GO-CL; G8988-GO-CI; J1100; J1170; J1644; J2250; J2270; J2405; J2704; J2765; J3010